=== PATIENT | female | born 1975 | race Caucasian/White ===

== ENCOUNTER 2022-02-13 09:18 | Emergency (ER) | payer MEDICAID ==
[~2022-02-13] VITALS: Ht 165.1 cm; Wt 120.0 kg
[2022-02-13 09:30] VITALS: BP 125/70
== END 2022-02-13 11:08 | disposition home or self-care (01) ==
LOC: ER 10:43
DX: H02.825 Cysts of left lower eyelid (principal)
CPT/HCPCS: 99281